=== PATIENT | female | born 2005 | race Caucasian/White ===

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

== ENCOUNTER 2024-05-30 02:22 | Inpatient (IN) ==
[2024-05-30] MEDS ORDERED: Lidocaine 1% VIAL 10 MG/ML 30 ML VIAL INJ PRN (02:42)
[2024-05-30 03:52] LABS: ABS Basophils 0.1 10^3/uL (0.0-0.1); ABS Lymphocytes 1.7 10^3/uL (1.0-4.8); ABS Monocytes 0.8 10^3/uL (0.0-0.9); ABS Neutrophils 12.3 10^3/uL (1.5-7.6); ABS Nucleated RBC 0.01 10^3/ul; Eosinophil % 0.2 %; Hematocrit 39.4 % (35-45); Hemoglobin 13.3 g/dL (11.5-14.3); Lymphocyte % 11.5 %; Mean Corpuscular Hemoglobin 27.6 pg (27-33); Mean Corpuscular Hgb Conc 33.8 g/dL (31-36); Mean Corpuscular Volume 81.7 fL (80-97); Mean Platelet Volume 8.2 fL (7.5-11.2); Platelet Count 301 10^3/uL (150-450); Red Blood Count 4.82 10^6/uL (3.63-4.92); Red Cell Distribution Width 13.7 % (12-17); White Blood Count 14.9 10^3/uL (3.8-11.8)
[2024-05-30 04:24] LABS: Urine Appearance Turbid; Urine Bilirubin Negative (Negative); Urine Blood 3+ (Negative); Urine Color Yellow; Urine Glucose Negative (Negative); Urine Ketones 3+ (Negative); Urine Nitrite Negative (Negative); Urine Protein 1+ (>=30 mg/dL) (Negative); Urine Specific Gravity 1.022 (1.002-1.030); Urine Urobilinogen Negative (Negative); Urine pH 6.5 (5.0-8.0)
[2024-05-30 04:39] LABS: Urine Benzodiazepine Screen None Detected (None Detect); Urine Cannabinoids Screen Presumptive Positive (None Detect); Urine Opiates Screen None Detected (None Detect)
[2024-05-30 04:41] LABS: Urine Bacteria Absent /HPF (Absent); Urine Red Blood Cell 2+(6-10/hpf) /HPF (0-Trace); Urine Squamous Epithelial Cell Present /HPF (Absent); Urine White Blood Cell 3+(>20/hpf) /HPF (0-Trace)
[2024-05-30] MEDS ORDERED: Glycerin ADULT 2.4 gm SUPP PR PRN (07:25)
[2024-05-30] MEDS: Dibucaine 1% OINT 28.35 GM TUBE PR PRN (08:04)
[2024-05-30] MEDS: Witch Hazel PAD JAR TOPICAL PRN (08:04)
[2024-05-31] MEDS: Oxytocin 10 UNITS/ML 1 ML VIAL IM ONE (07:53)
[2024-05-31 08:28] LABS: ABS Basophils 0.1 10^3/uL (0.0-0.1); ABS Eosinophils 0.1 10^3/uL (0.0-0.5); ABS Lymphocytes 2.3 10^3/uL (1.0-4.8); ABS Monocytes 0.9 10^3/uL (0.0-0.9); ABS Neutrophils 9.1 10^3/uL (1.5-7.6); Eosinophil % 0.9 %; Hematocrit 30.1 % (35-45); Hemoglobin 10.2 g/dL (11.5-14.3); Lymphocyte % 18.6 %; Mean Corpuscular Hemoglobin 27.7 pg (27-33); Mean Corpuscular Hgb Conc 33.9 g/dL (31-36); Mean Corpuscular Volume 81.6 fL (80-97); Mean Platelet Volume 7.6 fL (7.5-11.2); Platelet Count 227 10^3/uL (150-450); Red Blood Count 3.68 10^6/uL (3.63-4.92); Red Cell Distribution Width 13.7 % (12-17); White Blood Count 12.5 10^3/uL (3.8-11.8)
[2024-05-31] MEDS: Buffered Lidocaine 1% SYRIN 1 ml INTRADERM ONE (21:46)
[2024-05-31] MEDS: Oxytocin in LR 0 MILLI.UNIT/0 ML BAG IV ONE (21:47)
[2024-05-31] MEDS: Lactated Ringers 1000 ml BAG 1,000 ML IV ONE (21:47)
[2024-05-31] MEDS: Lactated Ringers 1000 ml BAG 1,000 ML IV SCH (21:47)
[2024-06-01 08:37] VITALS: BP 119/64
== END 2024-06-01 14:15 | disposition home or self-care (01) | DRG 560 ==
LOC: MCHOBOUT 02:22 → MCHOB 02:48
PROVIDERS: ADMIT Obstetrics & Gynecology